=== PATIENT | female | born 1940 | race Caucasian/White ===

== ENCOUNTER → 2021-04-01 | Outpatient (CLI) | payer OTHER, MEDICARE ==
[~2021-04-01] MED LIST: ADULT LOW DOSE81 MG PO; CALCIUM OYSTER500 MG PO; CELEBREX 200 M200 MG PO; CHLORTHALIDONE25 MG PO; CO Q-10200 MG PO; CO Q-1030 MG PO; CO Q1060 MG PO; COLACE 100 MG100 MG PO; COUMADIN 4 MG TA4 M1 PO; CYMBALTA20 MG PO; CYMBALTA60 MG PO; DIAZEPAM 5 MG5 M1 PO; EFFEXOR75 MG PO; EVISTA; FENTANYL PA12 MCG/H1 TOP; FENTANYL PA12 MCG/HR; FENTANYL PA25 MCG/HR; FISH OIL 1,0001 EAC5 PO; FISH OIL 1,001000 MG PO; FLOMAX0.4 MG PO; HYDROCODON-ACE1 EA10 PO; HYDROCODONE-AP1 EAC1 PO; INTRINSI B12-F1 EACH PO; LIDODERM 5%1 PATCH TD; LIDODERM 5%1 PATCH TRANSDERM; LISINOPRIL10 MG PO; LISINOPRIL20 MG PO; LIVALO2 MG PO; METAMUCIL PAC1 UDPK1 GT; METHOTREXA1 GM/40 M1 IV; METHOTREXA250 MG/10 SC; MULTIVITAMINS1 EAC7 PO; NABUMETONE 500500 M1 PO; NEXIUM40 MG PO; PREDNISONE 2.52.5 M1 PO; PREDNISONE 5 MG5 M1 PO; PREDNISONE 5 MG5 MG PO; PRINIVIL10 MG PO; REMICADE 1100 MG/VIA IV; SULFASALAZINE PO; TOPROL XL 25 MG25 M1 PO; TOPROL XL25 MG PO; TRAMADOL; VIACTIV CAPLET1 EACH PO; VIACTIV SOFT C1 EACH PO; VIT C 500 MG-E500 MG PO; VITAMIN B-12500 MCG PO; VITAMIN B12 PO; VITAMIN C100 MG PO; VOLTAREN GEL 1100 G1 TRANSDERM; WELCHOL 625 MG625 MG PO; WELCHOL3.75 GM PO
== END ==
LOC: HYPER 08:25
PROVIDERS: ATTEND Emergency Medicine
DX: L89.322 Pressure ulcer of left buttock, stage 2 (principal); C34.11 Malignant neoplasm of upper lobe, right bronchus or lung; L84 Corns and callosities; I10 Essential (primary) hypertension; E78.5 Hyperlipidemia, unspecified; M06.9 Rheumatoid arthritis, unspecified; K50.90 Crohn's disease, unspecified, without complications; M41.9 Scoliosis, unspecified; G89.29 Other chronic pain; I25.10 Atherosclerotic heart disease of native coronary artery without angina pectoris; E78.00 Pure hypercholesterolemia, unspecified; K21.9 Gastro-esophageal reflux disease without esophagitis; J43.8 Other emphysema; F32.9 Major depressive disorder, single episode, unspecified; Z79.899 Other long term (current) drug therapy; Z86.718 Personal history of other venous thrombosis and embolism; Z96.659 Presence of unspecified artificial knee joint; Z98.890 Other specified postprocedural states; Z87.891 Personal history of nicotine dependence; Z92.21 Personal history of antineoplastic chemotherapy; Z99.81 Dependence on supplemental oxygen; Z90.49 Acquired absence of other specified parts of digestive tract; Z90.710 Acquired absence of both cervix and uterus; Z90.89 Acquired absence of other organs